=== PATIENT | female | born 1990 | race Caucasian/White ===

== ENCOUNTER → 2019-12-31 11:11 | Outpatient (CLI) | payer OTHER, SELFPAY ==
--- NOTE | ~2019-12-31 | US_ITS ---
EXAMINATION: US OB transvaginal DATE: 12/31/2019 11:45 INDICATION: First trimester dating TECHNIQUE: Real-time pelvic transabdominal and transvaginal ultrasound was performed. COMPARISON: None. FINDINGS: The uterus measures 10.6 x 7.8 x 8.5 cm. There is an intrauterine gestational sac. A yolk s ac is identified. heart motion is identified measuring 182 beats per minute (bpm) by M-mode Dop pler. The crown rump length measures 2.1 cm, which correlates with an estimated gestational age of 8 weeks and 5 day(s) (+/-) 5 day(s). The right ovary measures 3.5 x 1.3 x 2.1 cm. The left ovary measures 3.4 x 3.0 x 2.6 cm. There is n o free fluid in the pelvis. IMPRESSION: 1. Live intrauterine with an estimated gestational age of 8 weeks and 5 day(s) (+/-) 5 day( s) and an estimated delivery date of 08/06/2020. Reviewed, dictated and finalized at location A. IMPRESSION: 1. Live intrauterine with an estimated gestational age of 8 weeks and 5 day(s) (+/-) 5 day(s) and an estimated delivery date of 08/06/2020.
== END ==
PROVIDERS: Visit Provider Nurse Practitioner
DX: Z36.9 Encounter for antenatal screening, unspecified (principal); Z3A.00 Weeks of gestation of pregnancy not specified
CPT/HCPCS: 76817

== ENCOUNTER 2020-03-10 10:01 | Outpatient (CLI) | payer OTHER, SELFPAY ==
--- NOTE | ~2020-03-10 | US_ITS ---
EXAMINATION: US OB /maternal detail DATE: 03/10/2020 11:11 INDICATION: Second trimester anatomic survey TECHNIQUE: Real-time ultrasound of the pelvis was performed. COMPARISON: None. FINDINGS: There is a single living fetus in breech presentation. The placenta is anterior and 4.7 cm from the i nternal cervical os. heart rate is 154 beats per minute (bpm). cardiac activity and feta l movement are noted. The amniotic fluid index is subjectively normal. The following anatomy was identified as normal: 4 chamber heart 3 vessel cord cord insertion kidneys urinary bladder stomach spine diaphragm ventricles cisterna magna cerebellum The following biometric data were obtained: Biparietal diameter (BPD): 4.4 cm; head circumference (HC): 17.0 cm; abdominal circumference (AC): 13 .8 cm; femur length (FL): 3.2 cm. These measurements are concordant. Estimated weight is 308 g +/- 46 g, which correlates with the 85th percentile when 08/04/2020 i s used as estimated date of delivery. As single measurements, these parameters are each equal to the following estimated gestational ages w ith ranges of +/- 2 standard deviations: BPD: 19 weeks 3 days +/- 1 weeks 5 days. HC: 19 weeks 4 days +/- 1 weeks 3 days. AC: 19 weeks 2 days +/- 2 weeks 0 days. FL: 20 weeks 1 days +/- 1 weeks 6 days. estimated gestational age based solely on measurements from this exam is 19 weeks 4 days +/- 1 weeks 3 days. IMPRESSION: 1. Single living fetus in breech presentation. 2. Estimated weight is 308 g +/- 46 g, which correlates with the 85th percentile when 0 is used as estimated date of delivery. Reviewed, dictated and finalized at location A. IMPRESSION: 1. Single living fetus in breech presentation. 2. Estimated weight is 308 g +/- 46 g, which correlates with the 85th per centile when 08/04/2020 is used as estimated date of delivery.
== END 2020-03-10 10:02 | disposition home or self-care (01) ==
LOC: ANHIMG 10:07
PROVIDERS: Visit Provider Obstetrics & Gynecology Gynecology
DX: Z36.87 Encounter for antenatal screening for uncertain dates (principal)
CPT/HCPCS: 76805

== ENCOUNTER 2020-04-10 16:20 | Observation (INO) | payer OTHER, SELFPAY ==
[2020-04-10 16:42] VITALS: BP 123/75; PULSE 87
[2020-04-10 16:50] VITALS: BMI 33.3
--- NOTE | 2020-04-10 16:50 | OBADM ---
This patient, Anh Bragg, admitted to the OB room OB Post 116 for observation. Patient/family oriented to hospital policies and general routines including ID bracelet, bed and alarms, visiting hours, pain management, procedures, bathroom and other care routines, personal items, smoking policy, room service/diet, and visiting hours. Patient/Family are encouraged to report perceived risks to care and to ask questions if they do not understand what they are told or what they should do. 1620-Pt sent over from 's office for brown spotting performed SVE on pt in the office orders are to monitor contractions for 30 minutes and call for further orders.
--- NOTE | 2020-04-10 17:06 | PC.NURSE ---
1700- called, informed pt has been on the monitor for 30 minutes with no contractions. Pt states she felt her lower back tighten one time. Order received to monitor for a full hour and if no contractions discharge home on bedrest and pelvic rest and f/u in office in 2 weeks.
--- NOTE | 2020-04-10 17:50 | PC.NURSE ---
heart tones monitored from [id number] at 140.
--- NOTE | 2020-04-16 02:43 | PM.OBTRLD ---
OB - Triage/Final Diagnosis Final Diagnosis (1) Spotting affecting : Code(s): O26.859 - Spotting complicating , unspecified trimester Status: Acute
== END 2020-04-10 17:52 | disposition home or self-care (01) ==
PROVIDERS: Admitting Provider Obstetrics & Gynecology Gynecology; PCP Family Medicine; Visit Provider Obstetrics & Gynecology Gynecology
DX: O26.852 Spotting complicating pregnancy, second trimester (principal); Z3A.23 23 weeks gestation of pregnancy
CPT/HCPCS: G0378; G0379

== ENCOUNTER 2020-04-20 14:51 | Observation (INO) | payer OTHER, SELFPAY ==
[2020-04-20] VITALS (23 sets, daily range): BP systolic 117; BP diastolic 67; PULSE 90–144; TEMP 37.2; O2SAT 98–100; BMI 33.3
--- NOTE | 2020-04-20 15:53 | OBADM ---
This patient, Anh Bragg, admitted to the OB room OB Post 116 for observation. Patient/family oriented to hospital policies and general routines including ID bracelet, bed and alarms, visiting hours, pain management, procedures, bathroom and other care routines, personal items, smoking policy, room service/diet, and visiting hours. Patient/Family are encouraged to report perceived risks to care and to ask questions if they do not understand what they are told or what they should do.
[2020-04-20] MEDS: TERBUTALINE SULFATE 1 MG/ML VIAL 0.25 MG SUB-Q (16:22)
--- NOTE | 2020-04-20 16:47 | PC.NURSE ---
1606- called,informed pt came in for contractions that shes been having every 10 minutes since noon. Pt has had 6 contractions in the last 20 minutes. Orders received for SVE, terbutaline, and procardia an hour after contractions slow down.
[2020-04-20] MEDS: NIFEdipine 10 MG CAPSULE PO (18:15)
--- NOTE | 2020-05-01 10:10 | PM.OBTRLD ---
OB - Triage/Final Diagnosis Final Diagnosis (1) False labor: Code(s): O47.9 - False labor, unspecified Status: Acute
== END 2020-04-20 18:23 | disposition home or self-care (01) ==
PROVIDERS: Admitting Provider Obstetrics & Gynecology Gynecology; PCP Family Medicine; Visit Provider Obstetrics & Gynecology Gynecology
DX: O60.00 Preterm labor without delivery, unspecified trimester (principal); Z3A.00 Weeks of gestation of pregnancy not specified
CPT/HCPCS: 96372; A9270; G0378; G0379; J3105

== ENCOUNTER 2020-04-22 16:03 | Observation (INO) | payer OTHER, SELFPAY ==
--- NOTE | 2020-04-22 16:03 | OBADM ---
This patient, Anh Bragg, admitted to the OB room OB Post 117 for observation. Patient/family oriented to hospital policies and general routines including ID bracelet, bed and alarms, visiting hours, pain management, procedures, bathroom and other care routines, personal items, smoking policy, room service/diet, and visiting hours. Patient/Family are encouraged to report perceived risks to care and to ask questions if they do not understand what they are told or what they should do.
[2020-04-22 16:33] VITALS: BP 124/71; PULSE 93
[2020-04-22 16:57] VITALS: BMI 33.0
[2020-04-22 16:57] LABS: Add Urine Microscopic? YES; Appearance Urine Clear (Clear); Bacteria Urine Trace /hpf; Bilirubin Urine Negative (Negative); Blood Urine Negative (Negative); Color Urine Colorless (Yellow); Glucose Urine UA Negative (Negative); Ketones Urine Negative (Negative); Leukocyte Esterase Ur 1+ LEU/UL (NEGATIVE); Mucus Urine Rare /lpf; Nitrate Urine Negative (Negative); Protein Urine Negative (Negative); RBC Urine 0-2 /hpf (0-2); Specific Grav Ur 1.006 (1.001-1.035); Squamous Epithelial Cell Urine Few /hpf (Few); Urobilinogen Urine Negative mg/dL (<2.0); WBC Urine 0-3 /hpf (0-3)
[2020-04-22 17:00] VITALS: TEMP 37.1
[2020-04-22] MEDS: TERBUTALINE SULFATE 1 MG/ML VIAL 0.25 MG SUB-Q ×2 (17:54→18:56)
[2020-04-22] MEDS: NIFEdipine 10 MG CAPSULE 20 MG PO (17:55)
--- NOTE | 2020-04-22 18:34 | PC.NURSE ---
Patient denies contractions currently, patient reports occasional uterine cramping. Abdomen palpates soft. Plan of care discussed with patient. Patient denies questions.
[2020-04-22 18:37] LABS: Fetal Fibronectin Positive
--- NOTE | 2020-04-22 18:56 | PC.NURSE ---
Patient reports increased irritability with occasional contraction. Second dose of terbutaline administered.
[2020-04-22 20:00] VITALS: TEMP 36.6
--- NOTE | 2020-04-22 20:20 | PC.NURSE ---
Dr. Perdomo updated on maternal assessment, including uterine activity. FFN result positive. Discharge orders given.
--- NOTE | 2020-04-22 20:25 | PC.NURSE ---
Discharge orders reviewed with patient. labor precautions reviewed with patient. Patient states understanding. Patient instructed to call Friday for follow-up instructions and appointment.
--- NOTE | 2020-05-16 07:40 | P.PNOB_ITS ---
OB - Triage/Final Diagnosis Evaluation Laboratory results: Laboratory Tests 04/22/20 04/22/20 16:42 18:07 Urine Color Colorless Urine Appearance Clear Urine pH 7.0 Ur Specific [place] 1.006 Urine Protein Negative Urine Glucose (UA) Negative Urine Ketones Negative Ur Blood (Man) Negative Urine Nitrate Negative Urine Bilirubin Negative Urine Urobilinogen Negative Ur Leukocyte Esterase 1+ H Urine RBC 0-2 Urine WBC 0-3 Ur Squamous Epith Cells Few Urine Bacteria Trace Urine Mucus Rare Fibronectin Positive Final Diagnosis (1) False labor: Code(s): O47.9 - False labor, unspecified Status: Acute (2) contractions: Code(s): O47.9 - False labor, unspecified Status: Acute
== END 2020-04-22 20:25 | disposition home or self-care (01) ==
PROVIDERS: Admitting Provider Obstetrics & Gynecology; PCP Family Medicine; Visit Provider Obstetrics & Gynecology
DX: O60.00 Preterm labor without delivery, unspecified trimester (principal); Z3A.00 Weeks of gestation of pregnancy not specified
CPT/HCPCS: 81001; 82731; 87086; 87088; A9270; G0378; G0379; J3105

== ENCOUNTER 2020-04-30 18:48 | Observation (INO) | payer OTHER, SELFPAY ==
[2020-04-30 18:59] VITALS: TEMP 36.7
--- NOTE | 2020-04-30 19:22 | PC.NURSE ---
Patient reports mild contractions [id number] starting at 1400. Patient states she took her prescribed dose of procardia at 1400, and contractions have continued. Abdomen palpates soft between contractions, during contraction uterus palpates mild. VSS. Patient denies any LOF or vaginal bleeding.
[2020-04-30 19:23] VITALS: BP 132/76; PULSE 89
[2020-04-30 19:28] VITALS: BMI 33.3
[2020-04-30 19:30] VITALS: BP 114/70; PULSE 90
--- NOTE | 2020-04-30 19:32 | PC.NURSE ---
Dr. Perdomo updated with patient complaint of contractions [id number]. Unable to pickle processor contractions via TOCO monitor, monitor has been adjusted. Mild contraction palpated. Patient history of contractions during current and currently taking procardia 20mg [id number]. Patient reports last dose of procardia at 1400. VSS. FHT reactive. Orders received.
--- NOTE | 2020-04-30 19:35 | PC.NURSE ---
Plan of care discussed with patient. Patient states understanding of plan of care and agrees with plan of care.
[2020-04-30] MEDS: TERBUTALINE SULFATE 1 MG/ML VIAL 0.25 MG SUB-Q (19:45)
[2020-04-30] MEDS: NIFEdipine 10 MG CAPSULE 20 MG PO (19:50)
[2020-04-30 20:03] LABS: Add Urine Microscopic? YES; Appearance Urine Clear (Clear); Bacteria Urine Trace /hpf; Bilirubin Urine Negative (Negative); Blood Urine Negative (Negative); Color Urine Straw (Yellow); Glucose Urine UA Negative (Negative); Ketones Urine Trace mg/dL (Negative); Leukocyte Esterase Ur Trace LEU/UL (Negative); Mucus Urine Rare /lpf; Nitrate Urine Negative (Negative); Protein Urine Negative (Negative); RBC Urine 0-2 /hpf (0-2); Specific Grav Ur 1.011 (1.001-1.035); Squamous Epithelial Cell Urine Few /hpf (Few); Urobilinogen Urine Negative mg/dL (<2.0); WBC Urine 0-3 /hpf
--- NOTE | 2020-04-30 21:10 | PC.NURSE ---
Discharge instructions reviewed with patient. Patient educated on change in Procardia dosing from q6hr prn to q4hr prn. Patient states understanding. Patient instructed to call office in AM to schedule follow-up appointment with Dr. De Oliveira. Patient instructed to maintain pelvic and bedrest. labor precautions reviewed with patient. Patient states understanding of discharge instructions and precautions. Patient denies questions.
--- NOTE | 2020-04-30 21:11 | PC.NURSE ---
Patient left ambulating at 2110.
--- NOTE | 2020-05-17 14:27 | PM.OBTRLD ---
OB - Triage/Final Diagnosis Evaluation Laboratory results: Laboratory Tests 04/30/20 19:51 Urine Color Straw Urine Appearance Clear Urine pH 6.0 Ur Specific [place] 1.011 Urine Protein Negative Urine Glucose (UA) Negative Urine Ketones Trace Ur Blood (Man) Negative Urine Nitrate Negative Urine Bilirubin Negative Urine Urobilinogen Negative Leukocyte Esterase Rfl Trace H Urine RBC 0-2 Urine WBC 0-3 Ur Squamous Epith Cells Few Urine Bacteria Trace Urine Mucus Rare Final Diagnosis (1) contractions: Code(s): O47.9 - False labor, unspecified Status: Acute
== END 2020-04-30 21:11 | disposition home or self-care (01) ==
PROVIDERS: Admitting Provider Obstetrics & Gynecology; PCP Family Medicine; Visit Provider Obstetrics & Gynecology
DX: O47.9 False labor, unspecified (principal); Z3A.00 Weeks of gestation of pregnancy not specified
CPT/HCPCS: 81001; 96372; A9270; G0378; G0379; J3105

== ENCOUNTER 2020-08-03 05:46 | Inpatient (IN) | payer OTHER, SELFPAY ==
[2020-08-03] VITALS (81 sets, daily range): BP systolic 76–145; BP diastolic 25–121; PULSE 64–145; RESP 16; TEMP 36.3–37.3; O2SAT 97–100; BMI 37.5
--- NOTE | 2020-08-03 06:27 | WPDANESEPP ---
Anes - Eval Pre Procedure Procedure: labor epidural Date/Time: 08/03/20 06:27 Surgeon: maxine Pre Op Diagnosis: Induction of Labor Patient Data Age: 30 Gender: F Height: Weight: Allergies Allergy/AdvReac Type Severity Reaction Status Date / Time No Known Allergies Allergy Verified 07/11/20 14:38 Home Medications Medication Instructions Recorded Confirmed Type PNV cmb#95-ferrous fumarate-FA 1 tablet PO DAILY 07/11/20 07/11/20 History [] Patient hx anesthesia problems: none Family hx anesthesia problems: none PMFSH Past Medical History Medical History (Updated 05/16/20 @ 07:40 by Apollo Perdomo MD) contractions Family History Family History (Updated 07/11/20 @ 14:40 by Wally Terrazas RN) Father Diabetes mellitus Grandparent Diabetes mellitus Grandparent Heart disease Coronary stent patent Social History Social History Substance use: never Spiritual care concerns: No Exam Day of Procedure 08/03/20 06:27
[2020-08-03 06:55] LABS: Basophils Percent Auto 0.3 % (0.2-1.2); Eosinophils Absolute Auto 0.2 K/mm3 (0-0.3); Eosinophils Percent Auto 1.5 % (0-4.4); Hemoglobin 10.5 g/dL (12.0-15.0); Immature Granulocyte Absolute 0.07 K/mm3 (0.00-0.031); Immature Granulocyte Percent A 0.7 % (0-0.5); Lymphocytes Absolute Auto 1.86 K/mm3 (0.9-3.2); Lymphocytes Percent Auto 17.9 % (18.3-44.2); Mean Corpuscular HGB Conc 31.8 g/dl (32-36); Mean Corpuscular Hemoglobin 25.4 pg (26-34); Mean Corpuscular Volume 79.9 fl (80-100); Mean Platelet Volume 11.1 fl (7.4-10.4); Monocytes Absolute Auto 0.5 K/mm3 (0.1-0.6); Monocytes Percent Auto 5.2 % (2.6-8.5); Neutrophils Absolute Auto 7.7 K/mm3 (1.3-6.7); Neutrophils Percent Auto 74.4 % (45.5-73.1); Platelet Count Result 183 k/mm3 (150-375); Red Blood Count 4.13 M/mm3 (4.2-5.4); Red Cell Distribution Width 13.5 % (11.5-14.5); White Blood Count 10.4 K/mm3 (4.5-10.0)
[2020-08-03] MEDS: OXYTOCIN 30 UNITS/NS 500 ML 30 UNITS/500 ML BAG IV CONT (06:55)
[2020-08-03] MEDS: LACTATED RINGERS 1,000 ML 125 ML IV CONT (06:57)
--- NOTE | 2020-08-03 07:10 | LDADM ---
This patient, Anh Bragg, was admitted to Labor/Delivery/Recovery 104 on 08/03/20 at 05:46. Plans for labor, pain management and were discussed with patient. Patient/family oriented to hospital policies and general routines including ID bracelet, bed and alarms, visiting hours, pain management, procedures, bathroom and other care routines, personal items, smoking policy, room service/diet and guest tray routines, security routines, and visiting hours. Patient/Family are encouraged to report perceived risks to care and to ask questions if they do not understand what they are told or what they should do. See OBIX for further documentation.
--- NOTE | 2020-08-03 07:41 | WPDOBADMIT ---
Obstetrics - Admit Note Admission Note: record reviewed. No pertinent additions to the history and/or any subsequent changes in the physical findings that are not consistent with the expected course of the were found. Additions to the history and/or subsequent changes in the physical findings follow. Here for MIL. Cervix 4-5/50/-2 AROM with clear fluid. FHTs reactive
[2020-08-03] MEDS: fentaNYL CITRATE INJ (*CRX) 100 MCG/2 ML VIAL 50 MCG IV PUSH (09:06)
[2020-08-03] MEDS: PHENYLEPHRINE 1,000 MCG/10 ML SYRINGE 100 MCG IV PUSH ×2 (09:36→10:10)
--- NOTE | 2020-08-03 11:04 | P.PCNOB_ITS ---
OB - Delivery Note Procedure Delivery date: 08/03/20 Procedure: events: Labor Induction (for 39 wks) Intrapartal events: None Induction method: AROM and per pitocin protocol Delivery monitor: external FHT and external uterine Route of delivery: Laceration Description: Perineal - 2nd Degree Delivery repair: vicryl (3-0 ) Specimen: No Estimated blood loss (mL): 100 Anesthesia type: Epidural Disposition: floor [place] Baby Date of : 08/03/20 Weeks of gestation at delivery: 39 gender: Female presentation: vertex Placenta delivery description: Spontaneous cord vessel description: 3 Vessels score one minute: 8 score five minutes: 9
--- NOTE | 2020-08-03 11:05 | PM.OBDSVD ---
DS: Admitting Diagnosis Admitting Diagnosis Admitting Diagnosis: Induction of Labor DS: Discharge Diagnosis Discharge Diagnosis (1) (normal spontaneous vaginal delivery): Code(s): O80 - Encounter for full-term uncomplicated delivery Status: Acute OB - DS: Summary OB Procedures : Ultrasound OB Procedures Intrapartum: Spontaneous Vag Delivery OB Procedures: : None Peripartum Data Delivery Method: Natural Vaginal Laceration description: Perineal - 2nd Degree complications: none Status at Discharge Functional status at discharge: independent ambulation Overall status at discharge: patient is progressing back to baseline Time Spent with Patient Time attestation: Total time spent providing and/or coordinating discharge services: DS: Data Data Completed and Pending Labs on day of discharge: Labs from last 24 hours 08/03/20 08/03/20 08/03/20 06:36 06:36 06:36 WBC 10.4 H RBC 4.13 L Hgb 10.5 L Hct 33.0 L MCV 79.9 L MCH 25.4 L MCHC 31.8 L RDW 13.5 Plt Count 183 MPV 11.1 H Immature Gran % (Auto) 0.7 H Neut % (Auto) 74.4 H Lymph % (Auto) 17.9 L [place] % (Auto) 5.2 Eos % (Auto) 1.5 Baso % (Auto) 0.3 Lymph # (Auto) 1.86 [place] # (Auto) 0.5 Eos # (Auto) 0.2 Baso # (Auto) 0.0 Abs Immat Gran (auto) 0.07 H Absolute Neuts (auto) 7.7 H Absolute Nucleated RBC 0.0 Nucleated RBC % 0.0 RPR Pending Blood Type O Positive Antibody Screen Negative Discharge Plan Discharge Attending physician on discharge: Jessika De Oliveira Discharging Clinician: Jessika De Oliveira Anticipated Discharge Date/Time: 08/04/20 15:23 Patient Disposition: Home, Self-Care Activity: may shower and pelvic rest Diet: regular Discharge Instructions: Education: Mom and Baby Guide Given to: Mother Follow-Up: Call your delivering provider's office for an appointment to be seen in: 4 Weeks Mom [facility]. Appointment Date/Time: August 05, 2020 at 11:00 am What to expect at your follow-up visit: Blood Pressure Check Call [phone] if you are unable to keep your appointment time. BREAST CARE: * Wear a snug supportive bra. * For engorgement discomfort: Breast Feeding: * Apply warm moist washcloths * Express milk as needed to relieve engorgement * Wear loose clothing Bottle Feeding: * May apply ice packs * For sore nipples: * Identify correct latch-on * Apply warm moist washcloths before and after nursing * Air dry nipples after nursing * May apply Lansinoh cream to nipples PERINEAL CARE: * Until bleeding stops, use your emmie bottle after urinating * Change your pad frequently throughout the day * You may take sitz baths several times a day (fill your bathtub with warm water and soak for 20 minutes.) Do NOT bathe in the water * No tub baths until seen by your physician - You may shower ACTIVITY: * Rest as much as possible. * Do not exercise or lift anything heavier than your baby (such as laundry or other children.) * Avoid stairs or driving as much as possible. * Do not put anything into the vagina. No douching, tampons, or sexual activity until seen by physician. NOTIFY PHYSICIAN IF YOU HAVE ANY QUESTIONS OR IF ANY OF THE FOLLOWING SYMPTOMS OCCUR: * If your perineum becomes red, swollen, or more painful than what you have experienced in the hospital. * If your vaginal bleeding becomes foul smelling. * If your vaginal bleeding becomes more heavy than a period or if your bleeding changes from pink to bright red. However, you may pass an occasional walnut-sized clot once or twice for the first week . * If you experience a sharp, shooting pain in you calves. * If you discover a hard, reddened area on your b
[2020-08-03] MEDS: METHYLERGONOVINE MALEATE 0.2 MG/ML VIAL IM (11:11)
[2020-08-03] MEDS: OXYTOCIN 30 UNITS/NS 500 ML 30 UNITS/500 ML BAG 125 UNITS IV CONT ×2 (11:26→16:30)
[2020-08-03] MEDS: miSOPROStol 200 MCG TABLET 800 MCG RECTAL (12:19)
[2020-08-03] MEDS: BENZOCAINE 20% AER SPR (*SP) 56 GM CAN 1 SPRAY TOPICAL (13:12)
[2020-08-03] MEDS: WITCH HAZEL 40 PADS 1 PAD TOPICAL (13:12)
--- NOTE | 2020-08-03 13:44 | PC.NURSE ---
08/03/20 13:43 (created 08/03/20 15:04) - Nurse Note by Alberto Mead RN Acct Num: [id number] : 08/03/2020 Patient Age: 0m 0d PT arrived on unit via wheelchair accompanied by spouse and infant and taken to room 290. PT introductions made and plan of care discussed per post , pain management, daily care activities, breast feeding. PT oriented to room 290 and surrounding area. Welcome packet reviewed and discussed . PT verbalized understanding of such care.
[2020-08-03] MEDS: IBUPROFEN 600 MG TABLET PO (16:29)
[2020-08-03] MEDS: DOCUSATE SODIUM 100 MG CAPSULE PO (16:29)
[2020-08-03] MEDS: ACETAMINOPHEN 325 MG TABLET 650 MG PO (20:37)
[2020-08-04] MEDS: IBUPROFEN 600 MG TABLET PO ×3 (00:26→14:43)
[2020-08-04] MEDS: ACETAMINOPHEN 325 MG TABLET 650 MG PO ×3 (04:43→16:13)
[2020-08-04 05:41] LABS: Hematocrit 26.9 % (37.0-47.0); Hemoglobin 8.4 g/dL (12.0-15.0)
--- NOTE | 2020-08-04 07:00 | WPDANLDPN2 ---
Anes-Prog Note L&D Date/Time: 08/04/20 07:00 Comfortable throughout: labor and delivery Neuraxial method: epidural Epidural/Spinal procedure site: clean & non-tender Neuro status: Neuro function grossly intact. Cardiovascular status: normal Respiratory status: normal Airway patency: baseline Mental status: baseline Post-Op hydration status: normal Vital Signs: Last Vital Signs Temp 36.6 C 08/03/20 18:25 Pulse 94 08/03/20 18:25 Resp 16 08/03/20 18:25 BP 130/65 08/03/20 18:25 Pulse Ox 99 08/03/20 15:30 Pain score (VAS): 1 I/O: Intake & Output 08/03/20 08/03/20 08/04/20 15:59 23:59 07:59 Intake Total 1150 100 Balance 1150 100 Post-procedural complaints: none Patient feedback: Patient satisfied with anesthetic care.
[2020-08-04] MEDS: DOCUSATE SODIUM 100 MG CAPSULE PO ×2 (07:27→16:12)
[2020-08-04] MEDS: MULTIVIT/MIN/PREN/FOL AC/IRON TABLET 1 TAB PO (07:27)
[2020-08-04] MEDS: POLYSACCHARIDE IRON COMPLEX 150 MG CAPSULE PO ×2 (07:28→16:12)
--- NOTE | 2020-08-04 07:30 | PC.NURSE ---
PT introductions made and plan of care discussed per post , pain management, breast feeding, daily care activities and pending discharge to home. PT Verbalized understanding of such care.
[2020-08-04 07:55] VITALS: BP 129/85; PULSE 83; RESP 18; TEMP 36.3; O2SAT 100
[2020-08-04 09:31] LABS: Rapid Plasma Reagin Non-Reactive (NonReactive)
--- NOTE | 2020-08-04 09:50 | PC.NURSE ---
Consulted with patient, mother states this is third child to breastfeed. Mother fed other children without issue. . Reviewed feeding cues, frequencies, duration of feedings, feeding elimination flow sheet, and signs of adequate intake. Demonstrated stimulation techniques to wake infant for feeding. Reviewed positioning/alignment in cross cradle, holding breast in U hold and guided asymmetrical latch on. Infant was able to latch correctly. Infant nursed eagerly, with steady draws and frequent swallowing noted. Reviewed signs of a correct latch, effective nursing and suck swallow ratio. was able to maintain latch without discomfort to mother. Nipple care reviewed. Suggested mother stimulate while feeding to keep awake and effectively feeding for increased intake and assist in maintaining deep latch. Mother states she wishes for discharge after 24 hours. Mother is feeding as required and waking infant to feed if needed. Infant is currently meeting outcomes for weight, output, jaundice and feeding frequencies. Mother states she feels confident to continue effective at home. Reviewed transition to breast milk, signs of adequate intake, and engorgement/relief. Instructed to call ICP if intake/output less than required. Reviewed regular medications mother is taking. Information provided per Flor. Reviewed community resources on the [facility] website and in the Mom/Baby guide. Information on outpatient services provided. Mother has no further questions at this time.
[2020-08-04 10:30] VITALS: PULSE 83; RESP 18; O2SAT 100
--- NOTE | 2020-08-04 12:00 | PC.NURSE ---
Patient viewed the discharge video Mother & Baby Care, The First Two Weeks . Patient was given the opportunity and encouraged to ask questions. Patient verbalized understanding of information shared and has been given the mother/baby guide for home reference.
--- NOTE | 2020-08-04 15:23 | P.PNOB_ITS ---
OB - PN: Subj Subjective Date/time seen: 08/04/20 15:23 Patient comments: no complaints, pain well controlled and tolerating diet [place] baby status: doing well and nursing well OB - PN: Obj Data Labs CBC & Chem 7: 08/04/20 04:43 Labs: Laboratory Results - last 24 hr 08/03/20 08/04/20 06:36 04:43 Hgb 8.4 L Hct 26.9 L RPR Non-reactive OB - PN A/P Plan day: 1 Plan: routine care, discharge home, follow up 6 weeks and other (planning IUD for bc) Time Spent With Patient Time: Total time spent is greater than 50% in coordination of care (as documented) at patient's floor/unit and/or counseling patient: Exam : Bimanual exam- vagina & uterus: other (Uterus firm, nt @U)
--- NOTE | 2020-08-04 16:45 | PC.NURSE ---
PT received discharge instructions per protocol and verbalized understanding of such instructions.
--- NOTE | 2020-08-04 17:04 | PC.NURSE ---
PT discharged to home ambulatory accompanied by spouse and and taken to waiting car. follow up appts confirmed
[2020-08-05 10:37] VITALS: BP 118/72; PULSE 90; RESP 16; TEMP 36.6; O2SAT 100
== END 2020-08-04 17:04 | disposition home or self-care (01) | DRG 807 ==
LOC: ANHLDR 11:06 → ANHOB2 13:59
PROVIDERS: Admitting Provider Obstetrics & Gynecology Gynecology; PCP Family Medicine; Visit Provider Obstetrics & Gynecology Gynecology
DX: O70.1 Second degree perineal laceration during delivery (principal); Z37.0 Single live birth; Z3A.39 39 weeks gestation of pregnancy
CPT/HCPCS: 36415; 85014; 85018; 85025; 86592; 86850; 86900; 86901; A9270; J2210; J2370; J2590; J2795; J3010; J7120

== ENCOUNTER → 2020-10-10 13:44 | Outpatient (CLI) | payer OTHER, SELFPAY ==
--- NOTE | ~2020-10-10 | US_ITS ---
EXAMINATION: US transvaginal DATE: 10/10/2020 14:09 INDICATION: Menorrhagia, nine weeks with persistent vaginal bleeding TECHNIQUE: Multiple endovaginal sonographic images of the pelvis were obtained. COMPARISON: 12/31/2019 FINDINGS: The uterus measures 7.3 x 4.4 x 5.6 cm. Hyperechoic material distends the endometrial canal up to 2.1 cm. The right ovary measures 2.2 x 1.9 x 2.6 cm. The left ovary measures 2.7 x 1.8 x 2.1 c m. There is normal vascular flow in the ovaries. There is no free fluid in the pelvis. IMPRESSION: 1. Hyperechoic material distending the endometrial canal which could reflect hematoma or possibly ret ained products of conception. Reviewed, dictated and finalized at location A. IAL NEEDS TEACHER IMPRESSION: 1. Hyperechoic material distending the endometrial canal which could reflect he matoma or possibly retained products of conception.
== END ==
PROVIDERS: Visit Provider Obstetrics & Gynecology Gynecology
DX: O90.89 Other complications of the puerperium, not elsewhere classified (principal); R93.89 Abnormal findings on diagnostic imaging of other specified body structures
CPT/HCPCS: 76830

== ENCOUNTER → 2020-10-20 10:05 | Outpatient (CLI) | payer OTHER, SELFPAY ==
--- NOTE | ~2020-10-20 | US_ITS ---
EXAMINATION: US transvaginal EXAM DATE: 10/20/2020 10:35 INDICATION: Abnormal uterine bleeding. TECHNIQUE: Pelvic transvaginal sonogram was performed. There are multiple grayscale and Doppler imag es available for interpretation. Comparison is made to prior examination from 10/10/2020. FINDINGS: Uterus measures 6.2 x 4.7 x 4.9 cm, is retroverted and morphologically normal. Endometria l stripe measures 15 mm, upper limits of normal, with heterogeneous echogenicity inside. On the prior examination the endometrium measured about 20 mm. There is a nabothian cyst. There is no free pelvi c fluid. Right adnexa: The ovary measures 2.4 x 1.6 x 1.3 cm and is morphologically normal. Ovarian vascular f low confirmed. Left adnexa: The ovary measures 3.4 x 1.4 x 3.0 cm and is morphologically normal. Ovarian vascular fl ow confirmed. IMPRESSION: Endometrium upper limits of normal in thickness and with heterogeneous echogenicity, coul d contain endometrial polyps, retained products of conception, hemorrhage, hyperplasia or less likely cancer. Reviewed, dictated and finalized at location A. T MANAGER IMPRESSION: Endometrium upper limits of normal in thickness and with heterogene ous echogenicity, could contain endometrial polyps, retained products of concep tion, hemorrhage, hyperplasia or less likely cancer.
== END ==
PROVIDERS: Visit Provider Obstetrics & Gynecology Gynecology
DX: N93.8 Other specified abnormal uterine and vaginal bleeding (principal)
CPT/HCPCS: 76830

== ENCOUNTER 2020-11-07 02:05 | Outpatient (CLI) | payer OTHER, SELFPAY ==
[2020-11-07 18:12] LABS: SARS-CoV-2 RNA PCR Negative
== END 2020-11-07 02:06 | disposition home or self-care (01) ==
LOC: ANHCOVIDDT 02:05
PROVIDERS: Visit Provider Obstetrics & Gynecology Gynecology
DX: Z01.812 Encounter for preprocedural laboratory examination (principal); Z20.822 Contact with and (suspected) exposure to COVID-19
CPT/HCPCS: C9803; U0003; U0005

== ENCOUNTER 2020-11-10 02:43 | Day surgery (SDC) | payer OTHER, SELFPAY ==
[2020-11-06 10:05] VITALS: BMI 31.8
[2020-11-10 12:29] VITALS: BP 115/54; PULSE 63; RESP 20; TEMP 36.4; O2SAT 100
[2020-11-10] MEDS: LACTATED RINGERS 1,000 ML 30 ML IV CONT (12:59)
[2020-11-10] MEDS: ACETAMINOPHEN 500 MG TABLET 1000 MG PO (13:00)
--- NOTE | 2020-11-10 13:07 | WPDANESEPPF ---
Anes - Initial Pre Proc Eval Procedure: Operation Date: 11/10/20 14:30 Proposed Procedures p Hysteroscopy Dilation and Curettage - Jessika De Oliveira MD Date/Time: 11/10/20 13:07 Surgeon: Jessika De Oliveira MD Pre Op Diagnosis: Thickened Endometrial Stripe Patient Data Age: 30 Gender: F Height: 1.6 m Weight: 81.15 kg Last Vital Signs Temp 36.4 C L 11/10/20 12:29 Pulse 63 11/10/20 12:29 Resp 20 11/10/20 12:29 BP 115/54 L 11/10/20 12:29 Pulse Ox 100 11/10/20 12:29 Allergies Allergy/AdvReac Type Severity Reaction Status Date / Time No Known Allergies Allergy Verified 11/10/20 12:55 Home Medications Medication Instructions Recorded Confirmed Type PNV cmb#95-ferrous fumarate-FA 1 tablet PO DAILY 07/11/20 11/10/20 History [] Patient hx anesthesia problems: none Family hx anesthesia problems: none PMFSH Past Medical History Medical History (Updated 11/10/20 @ 13:08 by Trenton Herrera MD) Obesity contractions Family History Family History (Updated 07/11/20 @ 14:40 by Wally Terrazas RN) Father Diabetes mellitus Grandparent Diabetes mellitus Grandparent Heart disease Coronary stent patent Social History Social History Smoking status: Never smoker Substance use: never Living arrangements: with family Spiritual care concerns: No Anes - Eval Final PreProcedure Day of Procedure 11/10/20 13:07 Patient weight: overweight Heart: regular rate and rhythm Lungs: clear to auscultation and normal air movement Airway: Mallampati scale class II Neurological: alert and oriented Last oral intake: >/= 8 hours ASA classification: II Emergent: no Anesthetic plan: proceed Anesthesia type and monitoring: general GIVS Informed Consent: The patient's anesthetic plan and its attendant risks and benefits were discussed with the patient/family/POA. Questions were solicited and answers provided to the satisfaction of the patient/family/POA.
--- NOTE | 2020-11-10 14:20 | P.HP_ITS ---
History of Present Illness History of Present Illness Consent: Risks, benefits, and alternatives have been discussed and questions answered. Patient agrees to proceed with procedure. Chief complaint: Thickened Endometrial Stripe Narrative: Anh Bragg is a 30 year old female 12 weeks with continued light bleeding. U/s done and lining heterogeneous. Recommended D&C to further evaluate and treat. Risks of infection, bleeding, and perforation revie wed. PMFSH Past Medical History Medical History (Updated 11/10/20 @ 14:23 by Jessika De Oliveira MD) (normal spontaneous vaginal delivery) x 3 Obesity Family History Family History (Updated 07/11/20 @ 14:40 by Wally Terrazas RN) Father Diabetes mellitus Grandparent Diabetes mellitus Grandparent Heart disease Coronary stent patent Social History Social History Smoking status: Never smoker Substance use: never Living arrangements: with family Spiritual care concerns: No Meds Home Medications and Allergies Home Medications Medication Instructions Recorded Confirmed Type PNV cmb#95-ferrous fumarate-FA 1 tablet PO DAILY 07/11/20 11/10/20 History [] Allergies Allergy/AdvReac Type Severity Reaction Status Date / Time No Known Allergies Allergy Verified 11/10/20 12:55 Vital Signs Vital Signs - 24 hr 11/10/20 12:29 Temperature 97.5 F L Pulse Rate 63 Respiratory Rate 20 Blood Pressure 115/54 L Pulse Oximetry 100 Exam Const: General: healthy appearing and comfortable Nutritional Appearance: well nourished Resp: Effort & Inspection: normal respiratory effort Auscultation: clear to auscultation bilaterally Cardio: Rate: regular rate Rhythm: regular rhythm GI: Inspection: normal to inspection GI Palp: No Tenderness to palpation present (GI) : External Female Exam: normal external appearance Speculum Exam - Vagina: normal appearance of the vagina and other (blood present) Speculum Exam - Cervix: normal appearance of the cervix Bimanual exam- vagina & uterus: normal bimanual exam Assessment and Plan Assessment and plan (1) Vaginal bleeding: Code(s): N93.9 - Abnormal uterine and vaginal bleeding, unspecified Status: Acute Assessment and Plan: Persistent pp. Plan D&C
--- NOTE | 2020-11-10 14:24 | WPDHPUPDATE1 ---
History and Physical Update Update Date/Time: 11/10/20 14:24 History and Physical has been reviewed, including an updated exam of the patient. There are NO changes in the patient's condition. Risks, benefits, and alternatives have been discussed and questions answered. Patient agrees to proceed with procedure.
[2020-11-10] MEDS: LIDOCAINE HCL 1% LOCAL INJ 20 ML VIAL 50 ML INFILTRATE (15:06)
[2020-11-10 15:23] VITALS: BP 149/82; PULSE 60; RESP 12; O2SAT 100
--- NOTE | 2020-11-10 15:23 | PM.PROC ---
Procedure Note - Detailed Date of procedure: 11/10/20 Pre-op diagnosis: Thickened Endometrial Stripe abnormal vaginal bleeding Post-op diagnosis: same Procedure performed: D&C hysterscopy with myosure Description of procedure: The patient is taken to the operating room and placed under anesthesia in the dorsal lithotomy position. She is prepped and draped in the usual sterile fashion. [place] speculum was placed in the vagina and the cervix is grasped on the anterior lip with a tenaculum. The uterus is sounded to 6cm. The cervix is serially dilated with Hegar to an 8 with minimal resistance. The diagnostic hysteroscope was placed with the stated findings. The sharp curette is used to sharply curette the endometrium with minimal material obtained. The hysteroscope was replaced and the area of white thickening and calcifications remained in place. The MyoSure device is opened and placed. The area is removed under direct visualization. All instruments were then removed and the patient is awakened from anesthesia. She is taken to recovery room in stable condition. Sponge, instrument, and needle counts are correct per the OR staff. Anesthesia: MAC and local Surgeon: Jessika De Oliveira MD Estimated blood loss (mL): 5 Drains: No Packing: No Pathology: yes (endometrial) Complications: No immediate complications Condition: stable Disposition: PACU Findings: uterus 6 cm; upper left with thickened white material appearing to have calcifications within; remainder of endometrium appears normal
[2020-11-10 15:45] VITALS: BP 112/74; PULSE 58; RESP 20
[2020-11-10 16:15] VITALS: BP 120/80; PULSE 50; RESP 20
[2020-11-10 16:35] VITALS: BP 120/70; PULSE 52; RESP 20
== END 2020-11-10 16:50 | disposition home or self-care (01) ==
PROVIDERS: PCP Family Medicine; Visit Provider Obstetrics & Gynecology Gynecology
PROC: 0U5B8ZZ Destruction of Endometrium, Via Natural or Artificial Opening Endoscopic (ICD-10-PCS; CPT 58563; principal; 2020-11-10 14:30)
DX: O72.2 Delayed and secondary postpartum hemorrhage (principal)
CPT/HCPCS: 59899; 88305; A9270; C9803; J2250; J2405; J2704; J3010; J7030; J7120; U0003; U0005